=== PATIENT | male | born 1965 | race Caucasian/White ===

== ENCOUNTER 2021-01-13 09:18 | Emergency (ER) | payer OTHER, SELFPAY ==
--- NOTE | ~2021-01-13 | XR_ITS ---
EXAMINATION: XR ankle RT min 3V DATE: 01/13/2021 09:58 INDICATION: Right ankle injury. TECHNIQUE: 4 views of right ankle were obtained. COMPARISON: None. FINDINGS: Bone alignment is normal. No fracture. There is an osteochondral lesion of lateral talar do me. There is mild osteoarthritis of talonavicular joint. There are enthesophytes at the posterior and plantar aspects of calcaneal tuberosity. There is ankle soft tissue swelling. IMPRESSION: 1. Polyarticular osteoarthritis. Reviewed, dictated and finalized at location A.
--- NOTE | ~2021-01-13 | XR_ITS ---
EXAMINATION: XR foot RT min 3V DATE: 01/13/2021 09:59 INDICATION: Right foot injury. TECHNIQUE: 4 views of right foot were obtained. COMPARISON: None. FINDINGS: There is mild hallux valgus. No fracture. There is mild osteoarthritis of first metatarsoph alangeal joint, second proximal and distal interphalangeal joints, and talonavicular joint. There are enthesophytes at the posterior and plantar aspects of calcaneal tuberosity. IMPRESSION: 1. Mild polyarticular osteoarthritis. 2. Mild hallux valgus. Reviewed, dictated and finalized at location A.
[2021-01-13 09:19] VITALS: BP 146/92; PULSE 101; RESP 20; TEMP 36.7; O2SAT 98
--- NOTE | 2021-01-13 09:51 | ED.LOWEXIN ---
HPI - Extremity Injury (Lower) General Chief Complaint: Extremity Injury, Lower Stated Complaint: LEG INJURY Time Seen by Provider: 01/13/21 09:43 Source: RN notes reviewed History of Present Illness HPI Narrative: Patient presents emergency department via EMS for right foot injury. Patient states he was mowing and pushing a metal sled when the mower got slightly offkilter and his right foot had been trapped between a metal bar and the mower he states that it kept pushing him forward he had to turn off the gas to the mower and his foot was trapped under the metal bar for approximately 20 minutes he states he had pain in his right foot and ankle with no other trauma or injury the mower did not fall over he denies any numbness or tingling to the extremity denies any blood thinner use Related Data Home Medications Medication Instructions Recorded Confirmed atorvastatin DAILY 01/13/21 lisinopril-hydrochlorothiazide tablet DAILY 01/13/21 Allergies Allergy/AdvReac Type Severity Reaction Status Date / Time No Known Allergies Allergy Unknown Verified 01/13/21 09:22 Review of Systems Review of Systems: Gen.: Denies fevers or chills ENT: Denies facial pain Respiratory: Denies shortness of breath CV: Denies chest pain GI: Denies abdominal pain nausea, emesis Musculoskeletal: See HPI Neuro: Denies numbness, tingling, weakness or focal weakness Skin: Denies rash Except as documented, all other systems reviewed and negative [facility] Past Medical History Medical History (Updated 01/13/21 @ 11:05 by Miki Bhakta DO) Hypertension Social History Social History (Updated 01/13/21 @ 09:52 by Miki Bhakta DO) Smoking status: Never smoker Exam Narrative: APPEARANCE: No acute distress, nontoxic, resting in bed Eyes: EOMI HEENT: Normocephalic, atraumatic, RESPIRATORY: No respiratory distress MUSCULOSKELETAl: Tender to palpation over the right anterior and medial right ankle there is ecchymosis over the medial ankle extending into the medial foot and over the second and third toes no tenderness of the proximal fibula no tenderness of the right knee dorsalis pedis pulse 2+ neurovascular intact capillary refill less than 3 seconds in all 5 digits full movement of all 5 MTP and IP joints NEURO: Awake and alert. Following commands, speech normal, no focal deficits SKIN:: Warm, dry. Normal Color no rash or lesions Course Course Emergency Course: Patient recheck dorsalis pedis pulse remains 2+ no numbness or tingling Discussed with patient results of workup and diagnosis. Discussed need for follow-up with primary care, proper use of medication, and reasons to return to the emergency department. Patient understands and agrees to current treatment plan Vital Signs Vital signs: Vital Signs Temperature 98.0 F 01/13/21 09:19 Pulse Rate 101 H 01/13/21 09:19 Respiratory Rate 20 01/13/21 09:19 Blood Pressure 146/92 H 01/13/21 09:19 Pulse Oximetry 98 01/13/21 09:19 Temperature 98.0 F 01/13/21 09:19 Pulse Rate 101 H 01/13/21 09:19 Respiratory Rate 20 01/13/21 09:19 Blood Pressure 146/92 H 01/13/21 09:19 Pulse Oximetry 98 01/13/21 09:19 MDM - Extremity Injury (Lower) Imaging Data Radiologist's impression: ITS Impressions Ankle X-Ray 01/13/21 09:59 IMPRESSION: 1. Polyarticular osteoarthritis. Foot X-Ray 01/13/21 10:00 IMPRESSION: 1. Mild polyarticular osteoarthritis. 2. Mild hallux valgus. Discharge Plan Discharge Clinical Impression: Contusion of right foot Patient Disposition: Home, Self-Care Condition: Stable Instructions: Antibiotic Form, Crush Injury (ED) Additional Instructions: Return for increasing pain numbness or tingling in the extremities or any other symptoms or concern. Keep the foot elevated when at rest for the next 2 days apply a ice pack to the right foot for approximately 20 minutes every 3 hours while awake for the next 48 ho
[2021-01-13 11:18] VITALS: BP 131/89; PULSE 63; RESP 16; O2SAT 96
== END 2021-01-13 11:42 | disposition home or self-care (01) ==
PROVIDERS: Emergency Provider Emergency Medicine; PCP Family Medicine
DX: S90.31XA Contusion of right foot, initial encounter (principal); I10 Essential (primary) hypertension; M19.071 Primary osteoarthritis, right ankle and foot; M20.11 Hallux valgus (acquired), right foot; W28.XXXA Contact with powered lawn mower, initial encounter; Y93.H2 Activity, gardening and landscaping
CPT/HCPCS: 73610; 73630; 99283

== ENCOUNTER → 2021-05-18 01:09 | Outpatient (CLI) | payer OTHER, SELFPAY ==
[2021-05-19 14:30] LABS: SARS-CoV-2 RNA PCR Positive
== END ==
PROVIDERS: PCP Family Medicine; Visit Provider Family Medicine
DX: U07.1 COVID-19 (principal)
CPT/HCPCS: C9803; U0003; U0005

== ENCOUNTER 2021-05-20 09:38 | Outpatient (RCR) | payer OTHER, SELFPAY ==
[2021-05-20 14:39] VITALS: BP 141/82; PULSE 74; RESP 18; TEMP 37.1; O2SAT 98
[2021-05-20 15:52] VITALS: BP 115/77
--- NOTE | 2021-05-21 15:12 | PC.NURSE ---
Called Mr íDaz and he stated he is doing better today and has no questions at this time.
== END 2021-05-20 17:00 ==
LOC: AMCINF 09:38
PROVIDERS: PCP Family Medicine; Visit Provider Internal Medicine Hematology & Oncology
DX: U07.1 COVID-19 (principal); I10 Essential (primary) hypertension
CPT/HCPCS: M0243; Q0244

== ENCOUNTER → 2022-05-04 13:46 | Outpatient (CLI) | payer OTHER, SELFPAY ==
--- NOTE | ~2022-05-04 | US_ITS ---
EXAMINATION: US soft tissue head and neck DATE: 05/04/2022 14:07 INDICATION: Right neck localized swelling, mass and lump. TECHNIQUE: Multiple grayscale and Doppler ultrasound images of the neck were obtained. COMPARISON: None FINDINGS: In the right neck, there is a 6.1 x 3.3 x 3.8 cm mixed cystic and solid mass. IMPRESSION: 1. 6.1 x 3.3 x 3.8 cm mixed solid and cystic mass in right neck suspicious for dontrlel malignancy such as squamous cell carcinoma. Ultrasound-guided core needle biopsy is recommended. Neck CT with contras t is recommended. Reviewed, dictated and finalized at location A. AL DAMAGE CONTROL AGENT IMPRESSION: 1. 6.1 x 3.3 x 3.8 cm mixed solid and cystic mass in right neck suspicious for dontrell malignancy such as squamous cell carcinoma. Ultrasound-guided core needle biopsy is recommended. Neck CT with contrast is recommended.
== END ==
PROVIDERS: PCP Family Medicine; Visit Provider Family Medicine
DX: R22.1 Localized swelling, mass and lump, neck (principal)
CPT/HCPCS: 76536

== ENCOUNTER 2022-05-13 13:27 | Outpatient (CLI) | payer OTHER, SELFPAY ==
--- NOTE | ~2022-05-13 | CT_ITS ---
CT scan of the Neck Technique: 3 mm axial scans were obtained through the neck after intravenous administration of 75 cc Isovue. Coronal and sagittal reconstructions of the neck were obtained. Dose reduction technique was used on this scan by utilizing automated exposure control and iterative reconstruction technique. The dose-length product (DLP) was 649.71 mGy-cm. Clinical History: Neck mass Comparison made with prior ultrasound of the neck dated 05/04/2022. Findings: There is a 2.6 x 2.0 x 2.9 cm mass at the right lingual tonsil/base of tongue region (axial image 46 for example), with mass effect resulting in partial obliteration of the right-sided vallecular space. There is an additional larger mass in the right neck just deep to the right sternocleidal mastoid mu scles, superficial to the carotid sheath structures, measuring up to approximately 4.3 x 3.0 x 6.3 cm in extent. The majority of this mass is solid and heterogeneous, with a more cystic-appearing compon ent superiorly. There is marked compression of the right internal jugular vein by this mass, which is very poorly opacified as compared to the left side. There is an additional enlarged lymph node inferior to this mass, also medial to the lower sternoclei domastoid muscle, measuring 1.3 x 1.1 x 2.7 cm (axial image 54 on sagittal image 45). Parotid and submandibular glands appear unremarkable. Parapharyngeal fat preserved bilaterally. The thyroid gland appears normal. Images of the lung apices reveal no abnormalities. 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 4.3 x 3.0 x 6.3 cm mass in the right neck, as detailed above, which correlates with recent ultrasound , most compatible with dontrell metastatic disease. There is a cystic/necrotic component at the superior aspect of this lesion. Additional 1.3 x 1.1 x 2.7 cm lymph node on the more inferior level 2 cervical chain, consistent with additional dontrell metastasis. Marked compression of the right internal jugular vein by the largest mass noted above. 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 4.3 x 3.0 x 6.3 cm mass in the right neck, as detailed above, which correlates with recent ultrasound, most compatible with dontrell metastatic disease. There is a cystic/necrotic component at the superior aspect of this lesion. Additional 1.3 x 1.1 x 2.7 cm lymph node on the more inferior level 2 cervical chain, consistent with additional dontrell metastasis. Marked compression of the right internal jugular vein by the largest mass noted above.
[2022-05-13 14:22] LABS: Estimated Glomerular Filt Rate > 60
== END 2022-05-13 13:28 | disposition home or self-care (01) ==
PROVIDERS: PCP Family Medicine; Visit Provider Family Medicine
DX: R22.1 Localized swelling, mass and lump, neck (principal)
CPT/HCPCS: 70491; Q9967

== ENCOUNTER 2022-05-17 11:52 | Outpatient (CLI) | payer OTHER, SELFPAY ==
--- NOTE | ~2022-05-17 | US_ITS ---
EXAMINATION: US biopsy lymph node DATE: 05/17/2022 12:38 INDICATION: Right internal jugular chain lymphadenopathy. TECHNIQUE: The procedure including the risks, benefits, and alternatives was discussed with the patie nt. Risks discussed included bleeding and infection. The patient understood the risks and agreed to p roceed. The skin overlying the right neck was prepped and draped in usual sterile fashion. Anestheti c was administered with 1% lidocaine subcutaneously. An 18 gauge core biopsy needle was then used to obtain 3 core biopsy specimens under continuous sonographic guidance. The entry site was cleaned and dressed. There were no immediate complications. FINDINGS: Ultrasound images demonstrate the needle in an enlarged high right internal jugular chain l ymph node. IMPRESSION: 1. Ultrasound-guided core needle biopsy of an enlarged high right internal jugular chain lymph node. Reviewed, dictated and finalized at location A. DINE OPERATOR IMPRESSION: 1. Ultrasound-guided core needle biopsy of an enlarged high right internal jugu lar chain lymph node.
== END 2022-05-17 11:53 | disposition home or self-care (01) ==
PROVIDERS: PCP Family Medicine; Visit Provider Family Medicine
DX: R22.1 Localized swelling, mass and lump, neck (principal); C79.2 Secondary malignant neoplasm of skin
CPT/HCPCS: 38505; 76942; 88305; 88342

== ENCOUNTER 2023-06-15 07:17 | Day surgery (SDC) | payer OTHER, SELFPAY ==
[2023-06-01 11:33] VITALS: BMI 30.2
[2023-06-12 08:39] VITALS: BMI 30.2
[2023-06-15 08:09] VITALS: BP 150/103; PULSE 73; RESP 18; TEMP 37.1; O2SAT 99
[2023-06-15] MEDS: LACTATED RINGERS 1,000 ML 150 ML IV CONT (08:22)
--- NOTE | 2023-06-15 08:26 | PM.HPGS ---
History of Present Illness History of Present Illness Consent: Risks, benefits, and alternatives have been discussed and questions answered. Patient agrees to proceed with procedure. Chief complaint: History of Polyps Narrative: Ronak Díaz is a 57 year old male presents for screening colonoscopy. Patient's current weight appetite and bowel movements are normal. He is abdominal pain. He has had no bleeding. Previous colonoscopy 2016 revealed a benign tubulovillous adenoma. 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 This has been treated with chemo and radiation therapy. Most recent scan at the end of 2022 revealed no evidence of residual disease. Review of Systems Review of Systems: Review of systems noncontributory. [facility] Past Medical History Medical History (Updated 05/30/23 @ 12:07 by Osei Olson MD) Hyperlipidemia Hypertension Personal history of colonic polyps Personal history of malignant neoplasm of tongue Social History Social History (Updated 05/30/23 @ 10:52 by Priscila Menon MA) Smoking status: Never smoker Alcohol intake: current Alcohol use details: rarely Substance use: never Substance use type: does not use Do You Feel Safe in your Home?: Yes Lack of Transportation: YES Lack of Food: Never True Current Housing: I Have Housing Concerned About Future Housing: No Difficulty Paying Gas/Electric Bills: No Difficulty Paying for Meds: No Currently Unemployed: No Education: High School Diploma/GED Difficulty w/ Childcare or Family Care: No Living arrangements: with family Occupation/Education: occupation Gender identity (if verbalized by the patient): Male Sexual Orientation (if Verbalized by the Patient): Straight or Heterosexual Spiritual care concerns: No Meds Home Medications and Allergies Home Medications Medication Instructions Recorded Confirmed Type lisinopril 20 1 tablet PO DAILY #90 tabs 05/30/23 06/15/23 Rx mg-hydrochlorothiazide 12.5 mg tablet Allergies Allergy/AdvReac Type Severity Reaction Status Date / Time No Known Allergies Allergy Verified 06/15/23 08:06 Vital Signs Vital Signs - 24 hr 06/15/23 08:09 Temperature 98.7 F Pulse Rate 73 Respiratory Rate 18 Blood Pressure 150/103 H Pulse Oximetry 99 Oxygen Delivery Room Air Exam Narrative: Physical exam reveals patient to be alert. Vital signs stable. HEENT exam is unremarkable. Patient is anicteric. Lungs are clear to auscultation and percussion. Heart is without murmur or extra sounds. Abdomen bowel sounds are present soft nontender with no hepatosplenomegaly. Digital external rectal exam normal. Assessment and Plan Assessment and plan (1) Personal history of colonic polyps: Code(s): Z86.010 - Personal history of colonic polyps Status: Acute Assessment and Plan: The Patient has a history of tubulovillous adenoma in 2017. Plan for surveillance colonoscopy now and at intervals and (2) Personal history of malignant neoplasm of tongue: Code(s): Z85.810 - Personal history of malignant neoplasm of tongue Status: Acute
--- NOTE | 2023-06-15 08:57 | P.PNAN_ITS ---
Anes - Initial Pre Proc Eval Procedure: Operation Date: 06/15/23 09:30 Proposed Procedures p Colonoscopy - David Alatorre MD Date/Time: 06/15/23 08:57 Surgeon: David Alatorre MD Pre Op Diagnosis: History of Polyps Patient Data Age: 57 Gender: M Height: 1.78 m Weight: 92.4 kg Last Vital Signs Temp 37.1 C 06/15/23 08:09 Pulse 73 06/15/23 08:09 Resp 18 06/15/23 08:09 BP 150/103 H 06/15/23 08:09 Pulse Ox 99 06/15/23 08:09 O2 Del Method Room Air 06/15/23 08:09 Allergies Allergy/AdvReac Type Severity Reaction Status Date / Time No Known Allergies Allergy Verified 06/15/23 08:06 Home Medications Medication Instructions Recorded Confirmed Type lisinopril 20 1 tablet PO DAILY #90 tabs 05/30/23 06/15/23 Rx mg-hydrochlorothiazide 12.5 mg tablet Patient hx anesthesia problems: none Family hx anesthesia problems: none Results Review: All pre-operative results and documents have been reviewed as part of the pre- operative evaluation. [facility] Past Medical History Medical History (Updated 06/15/23 @ 08:58 by Jose Mendez MD) Hyperlipidemia Hypertension Personal history of colonic polyps Personal history of malignant neoplasm of tongue radiation and chemo Surgical History Surgical History (Updated 06/15/23 @ 08:58 by Jose Mendez MD) H/O colonoscopy Social History Social History Smoking status: Never smoker Alcohol intake: current Alcohol use details: rarely Substance use: never Substance use type: does not use Do You Feel Safe in your Home?: Yes Lack of Transportation: YES Lack of Food: Never True Current Housing: I Have Housing Concerned About Future Housing: No Difficulty Paying Gas/Electric Bills: No Difficulty Paying for Meds: No Currently Unemployed: No Education: High School Diploma/GED Difficulty w/ Childcare or Family Care: No Living arrangements: with family Occupation/Education: occupation Gender identity (if verbalized by the patient): Male Sexual Orientation (if Verbalized by the Patient): Straight or Heterosexual Spiritual care concerns: No Anes - Eval Final PreProcedure Day of Procedure 06/15/23 08:57 Patient weight: overweight Heart: regular rate and rhythm Lungs: clear to auscultation Airway: Mallampati scale class II Neurological: alert and oriented Last oral intake: >/= 8 hours ASA classification: III Emergent: no Anesthetic plan: proceed Anesthesia type and monitoring: general GIVS and standard monitoring Results Review: All pre-operative results and documents have been reviewed as part of the pre- operative evaluation. Informed Consent: The patient's anesthetic plan and its attendant risks and benefits were discussed with the patient/family/POA. Questions were solicited and answers provided to the satisfaction of the patient/family/POA.
[2023-06-15 09:46] VITALS: BP 136/88; PULSE 67; RESP 16; O2SAT 98
[2023-06-15 09:56] VITALS: BP 123/94; PULSE 66; RESP 18; O2SAT 98
--- NOTE | 2023-06-15 09:59 | WPDANESPN ---
Anes - Prog Note Post-Op Date/Time: 06/15/23 09:59 Cardiovascular status: normal Respiratory status: normal Airway patency: baseline Mental status: baseline Post-Op hydration status: normal Vital Signs: Last Vital Signs Temp 37.1 C 06/15/23 08:09 Pulse 67 06/15/23 09:46 Resp 16 06/15/23 09:46 BP 136/88 06/15/23 09:46 Pulse Ox 98 06/15/23 09:46 O2 Del Method Room Air 06/15/23 09:46 Pain Score (VAS): 0/10 I/O: Intake & Output 06/14/23 06/15/23 06/15/23 23:59 07:59 15:59 Intake Total 800 Balance 800 Patient Feedback: Patient satisfied with anesthetic care.
[2023-06-15 10:06] VITALS: BP 119/91; PULSE 69; RESP 18; O2SAT 98
== END 2023-06-15 10:12 | disposition home or self-care (01) ==
PROVIDERS: PCP Family Medicine; Visit Provider Internal Medicine Gastroenterology
PROC: 0DJD8ZZ Inspection of Lower Intestinal Tract, Via Natural or Artificial Opening Endoscopic (ICD-10-PCS; CPT 45378; principal; 2023-06-15 09:30)
DX: Z86.010 Personal history of colon polyps (principal); K64.8 Other hemorrhoids
CPT/HCPCS: 45378